=== PATIENT | male | born 1965 | race Caucasian/White ===

== ENCOUNTER 2024-01-15 09:34 | Observation (INO) | payer OTHER ==
--- OUTSIDE RECORDS SUMMARY | 2024-01-15 09:37 | XMS REPORT | Continuity of Care Document ---
Author Name Unknown Address [address] [facility]. [address] [place] [address] [facility] thconnect Address [address] [facility] [address] [place] [address] Care Team Providers Care Fitter Placer Name Role Phone KYLAH Attending Clinician Unavailable Maria Dolores Cowan Attending Clinician [phone] KYLAH Admitting Clinician Unavailable Payers Payer Name Policy Type Policy Number Effective Date Expirati on Date Source [employer] (EPO) [id number] 00:00:00 Medications Ordered Medication Name Filled Medication Name Start Date Stop Date Current Medication? Ordering Clinician Indication Dosage Frequency Signature (SIG) Comments Components Source acetylcyste ine 600 mg capsule Take 2 capsules twice a day by oral route. acetylcyste ine 600 mg capsule Take 2 capsules twice a day by oral route. No 2capsul e(s) BID acetylcyst eine 600 mg capsule Take 2 capsules twice a day by oral route. [facility] amlodipine 10 mg tablet TAKE 1 TABLET BY MOUTH EVERY DAY amlodipine 10 mg tablet TAKE 1 TABLET BY MOUTH EVERY DAY No amlodipine 10 mg tablet TAKE 1 TABLET BY MOUTH EVERY DAY [facility] amlodipine 5 mg tablet TAKE 1 TABLET BY MOUTH EVERY DAY amlodipine 5 mg tablet TAKE 1 TABLET BY MOUTH EVERY DAY No amlodipine 5 mg tablet TAKE 1 TABLET BY MOUTH EVERY DAY [facility] amoxicillin 875 mg-potassiu m clavulanate 125 mg tablet Take 1 tablet every 12 hours by oral route. amoxicillin 875 mg-potassiu m clavulanate 125 mg tablet Take 1 tablet every 12 hours by oral route. No 1 Q12H amoxicilli n 875 mg-potassi um clavulanat e 125 mg tablet Take 1 tablet every 12 hours [address] [facility] atorvastati n 20 mg tablet TAKE 1 TABLET BY MOUTH DAILY IN EVENING WITH MEAL atorvastati n 20 mg tablet TAKE 1 TABLET BY MOUTH DAILY IN EVENING WITH MEAL No atorvastat in 20 mg tablet TAKE 1 TABLET BY MOUTH DAILY IN EVENING WITH MEAL [facility] Bystolic 10 mg tablet TAKE 1 TABLET BY MOUTH EVERY DAY Bystolic 10 mg tablet TAKE 1 TABLET BY MOUTH EVERY DAY No Bystolic 10 mg tablet TAKE 1 TABLET BY MOUTH EVERY DAY [facility] famotidine 40 mg tablet TAKE 1 TABLET BY MOUTH EVERYDAY AT BEDTIME famotidine 40 mg tablet TAKE 1 TABLET BY MOUTH EVERYDAY AT BEDTIME No famotidine 40 mg tablet TAKE 1 TABLET BY MOUTH EVERYDAY AT BEDTIME [facility] fenofibrate 54 mg tablet Take 2 tablets every day by oral route. fenofibrate 54 mg tablet Take 2 tablets every day by oral route. No fenofibrat e 54 mg tablet Take 2 tablets every day by oral route. [facility] Gralise 600 mg tablet,exte nded release TAKE 2 TABLETS BY MOUTH AT BEDTIME Gralise 600 mg tablet,exte nded release TAKE 2 TABLETS BY MOUTH AT BEDTIME No Gralise 600 mg tablet,ext ended release TAKE 2 TABLETS BY MOUTH AT BEDTIME [facility] olmesartan 40 mg tablet TAKE 1 TABLET BY MOUTH EVERY DAY olmesartan 40 mg tablet TAKE 1 TABLET BY MOUTH EVERY DAY No olmesartan 40 mg tablet TAKE 1 TABLET BY MOUTH EVERY DAY [facility] omeprazole 20 mg capsule,del ayed release TAKE 1 CAPSULE BY MOUTH EVERY MORNING omeprazole 20 mg capsule,del ayed release TAKE 1 CAPSULE BY MOUTH EVERY MORNING No omeprazole 20 mg capsule,de layed release TAKE 1 CAPSULE BY MOUTH EVERY MORNING [facility] pregabalin 50 mg capsule TAKE 1 CAPSULE BY MOUTH TWICE A DAY pregabalin 50 mg capsule TAKE 1 CAPSULE BY MOUTH TWICE A DAY No pregabalin 50 mg capsule TAKE 1 CAPSULE BY MOUTH TWICE A DAY [facility] Vital Signs Vital Name Observation Time Observation Value Comments S ource BP Diastolic 2021-07-13 00:00:00 79 mm[Hg] [facility] BP Systolic 2021-07-13 00:00:00 121 mm[Hg] [facility] Body Weight 2021-07-13 00:00:00 2832 [oz_av] [facility] Procedures Procedure Date / Time Performed Performing Clinicia n Source CT, head + brain, w/o contrast 2021-07-12 00:00:00 [facility] Plan of Care Planned Activity Planned Date Details Comments Source Diagnostic Test Pending 2021-07-13 00:00:00 CBC w/ diff [code = CBC w/ diff] [facility] Diagnostic Test Pending 2021-07-13 00:00:00 CMP, serum or plasma [code = CMP, serum or plasma] [facility] Diagnostic Test Pending 2021-07-13 00:00:00 culture, blood [code = culture, blood] [facility] Diagnostic Test Pending 2021-07-13 00:00:00 lipids, total, serum [code = lipids, total, serum] [facility] Instructions [facility] Encounters Start Date/Time End Date/Time Encounter Type Admission Type Attending Clinicians Care Facility Care Department Encounter ID Source 2021-07-13 11:13:00 2021-07-13 11:13:00 Outpatient KYLAH [facility] [id number] [facility] 2021-07-13 00:00:00 2021-07-13 00:00:00 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 [facility] [id number] [facility] 2021-07-13 00:00:00 2021-07-13 00:00:00 Outpatient Maria Dolores Cowan [facility] [id number] 02:34:00 2021-07-12 02:34:00 Outpatient WATERS_S [facility] [id number] [facility] 2021-07-02 12:40:00 2021-07-02 12:40:00 Outpatient [facility]ATERS_S [facility] [id number] [facility] Results Test Description Test Time Test Comments Results Result Co mments Source [facility]
[2024-01-15] MEDS ORDERED: NA CHLORIDE 0.9% 1,000 ML ONE (09:52)
[2024-01-15 10:03] LABS: Absolute Basophils 0.1 K/uL (0-0.5); Absolute Eosinophils 0.2 K/uL (0-0.5); Absolute Lymphocytes (CBC) 1.6 K/uL (0.7-4.9); Absolute Monocytes 1.8 K/uL (0.1-1.3); Absolute Neutrophil 12.1 K/uL (1.8-8.0); Basophils % 0.5 % (0-1.3); Eosinophils % 1.2 % (0-4.4); Hematocrit 37.4 % (39.6-49.0); MCH 32.4 pg (27.0-35.0); MCHC 35.1 g/dL (32.0-36.0); MCV 92.1 fL (80-100); MPV 8.4 fL (7.6-11.3); Monocytes % 11.4 % (3.3-12.3); Neutrophils % 76.9 % (41.7-73.7); Nucleated Red Blood Cells % 0.1 % (0-0); Platelets 271 thou/uL (152-406); RBC Red Blood Cell Count 4.06 M/uL (4.33-5.43); Red Cell Distribution Width 12.9 % (12.1-15.2)
[2024-01-15 10:21] LABS: Hemoglobin 13.1 g/dL (13.6-17.9)
[2024-01-15 10:27] LABS: Albumin 3.7 g/dL (3.4-5.0); Albumin/Globulin Ratio 0.8 (1.1-1.8); Anion Gap 9.1 mEq/L (5.0-15.0); Bilirubin Total 0.8 mg/dL (0.2-1.0); Globulin 4.4 g/dL (2.3-3.5); Potassium 4.1 mEq/L (3.5-5.1); Protein, Total 8.1 g/dL (6.4-8.2)
[2024-01-15 10:31] LABS: Specific Gravity 1.027 (1.005-1.030); Sqamous Epithelial None Seen /HPF (None Seen); Urine Bacteria <20 /HPF (<20); Urine Bilirubin NEGATIVE (Negative); Urine Blood Negative (Negative); Urine Clarity Extremely Turbid (Clear); Urine Color Yellow (Yellow); Urine Culture Reflex Order NOT NEEDED; Urine Glucose NEGATIVE (Negative); Urine Ketones 1+ (Negative); Urine Microscopic Reflex YN ORDER UMIC; Urine Mucus 4+ /HPF (None Seen); Urine Nitrite NEGATIVE (Negative); Urine Protein 1+ (Negative); Urine RBC <5 /HPF (None Seen); Urine Urobilinogen Normal (Normal); Urine WBC <5 /HPF (<5); Urine pH 5.5 (5.0-7.0)
--- NOTE | 2024-01-15 11:12 | RAD REPORT ---
EXAM DESCRIPTION: CTAbdomen Pelvis W Contrast - 01/15/2024 10:48 am CLINICAL HISTORY: Abdominal pain. RLQ pain x 3 days;Abd pain COMPARISON: No comparisons TECHNIQUE: Biphasic CT imaging of the abdomen and pelvis was performed with 100 ml non-ionic IV cont rast. All CT scans are performed using dose optimization technique as appropriate and may include automated exposure control or mA/KV adjustment according to patient size. FINDINGS: The lung bases are clear. The liver demonstrates mild fatty infiltration. The spleen, pancreas, adrenal glands and kidneys are within normal limits. No bowel obstruction, free air, free fluid or abscess. Mild inflammatory changes are seen in the rig ht lower quadrant adjacent to the cecum and base of the appendix. The appendix is dilated to 12-13 mm likely acute appendicitis. No evidence of significant lymphadenopathy. Aortoiliac atherosclerosis. Mild lower lumbar degenerative changes. IMPRESSION: Suspected acute appendicitis.
--- NOTE | 2024-01-15 11:20 | ER ---
Nurse's Notes [facility] Name: Bello Zamora Age: 58 yrs Sex: Male : 1965 Arrival Date: 01/15/2024 Time: 09:34 Bed 4 Private MD: Diagnosis: Appendicitis Presentation: 01/14 09:39 Chief complaint: Patient states: lower abd pain and nausea since monday. Denies aa5 vomiting, reports slight diarrhea. 09:39 Coronavirus screen: At this time, the client does not indicate any symptoms associated aa5 with coronavirus-19. Ebola Screen: Patient denies travel to an Ebola-affected area in the 21 days before illness onset. Initial Sepsis Screen: Does the patient meet any 2 criteria? No. Patient's initial sepsis screen is negative. Does the patient have a suspected source of infection? No. Patient's initial sepsis screen is negative. Risk Assessment: Do you want to hurt yourself or someone else? Patient reports no desire to harm self or others. Onset of symptoms was January 12, 2024. 09:39 Acuity: SOWMYA 3 aa5 09:39 Method Of Arrival: Ambulatory aa5 Triage Assessment: 09:45 General: Appears in no apparent distress. uncomfortable, Behavior is calm, cooperative, bp appropriate for age. Pain: Complains of pain in abdomen. GI: Reports lower abdominal pain. Historical: - Allergies: 09:47 avelox ((moxifloxacin) fluoroquinolone antibiotic ); aa5 - PMHx: 09:47 Hypertensive disorder; aa5 - PSHx: 09:47 None; aa5 - Immunization history:: Adult Immunizations unknown. - Social history:: Smoking status: Reported history of juuling and/or vaping. Screenin:45 [facility] ED Fall Risk Assessment (Adult) History of falling in the last 3 months, bp including since admission No falls in past 3 months (0 pts). Abuse screen: Denies threats or abuse. Denies injuries from another. Nutritional screening: No deficits noted. Tuberculosis screening: No symptoms or risk factors identified. Assessment: 09:45 General: SEE TRIAGE NOTE. bp 10:30 Reassessment: No changes from previously documented assessment. Patient is alert, bp oriented x 3, equal unlabored respirations, skin warm/dry/pink. Vital Signs: 09:39 BP 127 / 78; Pulse 73; Resp 16 S; Temp 97.8(TE); Pulse Ox 96% on R/A; Weight 83.91 kg aa5 (R); Height 5 ft. 10 in. (R); 10:58 BP 122 / 70; Pulse 79; Resp 15; Pulse Ox 97% ; ko1 12:10 BP 118 / 68; Pulse 72; Resp 14; Pulse Ox 98% ; ko1 09:39 Body Mass Index 26.54 (83.91 kg, 177.8 cm) aa5 ED Course: 09:37 Patient arrived in ED. mg5 09:37 Krystal Worthington MD is Attending Physician. sp3 09:39 Arm band placed on Patient placed in an exam room, on a stretcher. aa5 09:44 Mirta Scanlon, PAYAM is Primary Nurse. ko1 09:45 Patient has correct armband on for positive identification. bp 09:50 Triage completed. aa5 09:56 CBC with Diff Sent. bc6 09:56 CMP Sent. bc6 09:56 Lipase Sent. bc6 09:56 Initial lab(s) drawn, by me, sent to lab. Inserted saline lock: 20 gauge in right bc6 antecubital area, using aseptic technique. Blood collected. 10:00 Assisted to bathroom. ko1 10:00 Urinalysis w/ reflexes Sent. bc6 10:48 CT Abd/Pelvis - IV Contrast Only In Process Unspecified. EDMS 10:58 Provided Education on: na. ko1 11:18 Bello Goodwin MD is Hospitalizing Provider. sp3 12:10 Assisted to bathroom. ko1 12:10 No provider procedures requiring assistance completed. Patient admitted, IV remains in ko1 place. Administered Medications: 09:54 Drug: NS 0.9% IV 1000 ml IV at 1 bolus Per protocol; 1000 mL bolus Route: IV; Rate: 1 ko1 bolus; Site: right antecubital; 11:40 Drug: morphine IVP or IV 4 mg IVP once over 4 mins Route: IVP; Infused Over: 4 mins; ko1 Site: right antecubital; 12:09 Follow up: Response: No adverse reaction; Pain is decreased ko1 11:40 Drug: Ondansetron IVP 4 mg IVP once; over 2 minutes Route: IVP; Site: right antecubital;ko1 12:09 Follow up: Response: No adverse reaction ko1 11:53 Drug: Piperacillin-Tazobactam IVPB 3.375 grams IVPB once over 60 mins; (mix in NS 100 ko1 mL) Route: IVPB; Infused Over: 60 mins; Site: right antecubital; 12:09 Follow up: Response: No adverse reaction ko1 Medication: 10:58 VIS not applicable for this client. ko1 Outcome: 11:19 Decision to Hospitalize by Provider. sp3 12:20 Patient left the ED. mb9 Signatures: Dispatcher [employer] EDAlisha March RN RN aa5 Zach Palma RN RN bp Patel, Setul, MD MD sp3 Mirta Scanlon RN RN ko1 Aliyah Rincon RN RN mb9 Nicki Monsivais6 Jimena Mora mg5 Corrections: (The following items were deleted from the chart) 09:49 09:47 Allergies: No Known Allergies; aa5 aa5
--- NOTE | 2024-01-15 11:20 | EDPHYS ---
Physician Documentation [facility] Name: Bello Zamora Age: 58 yrs Sex: Male : 1965 Arrival Date: 01/15/2024 Time: 09:34 Bed 4 Private MD: ED Physician Krystal Worthington HPI: 01/14 09:57 This 58 yrs old Male presents to ER via Ambulatory with complaints of Abdominal Pain. sp3 09:57 58-year-old male with history of hypertension presents with a 3-day history of right sp3 lower quadrant abdominal pain constant in nature which today he states he "got sick". He denies any other symptoms except mild diarrhea nonbloody nonmucoid in nature. He denies fever, headache, URI symptoms, chest pain, shortness breath, back pain, flank pain, dysuria, urinary frequency, left-sided abdominal pain, syncope, near syncope, rash, neurological symptoms, or any other signs or symptoms on ROS at this time. He has no past surgical history.. Historical: - Allergies: 09:47 avelox ((moxifloxacin) fluoroquinolone antibiotic ); aa5 - PMHx: 09:47 Hypertensive disorder; aa5 - PSHx: 09:47 None; aa5 - Immunization history:: Adult Immunizations unknown. - Social history:: Smoking status: Reported history of juuling and/or vaping. ROS: 09:58 Constitutional: Negative for fever, chills, and weight loss, Eyes: Negative for injury, sp3 pain, redness, and discharge, ENT: Negative for injury, pain, and discharge, Neck: Negative for injury, pain, and swelling, Cardiovascular: Negative for chest pain, palpitations, and edema, Respiratory: Negative for shortness of breath, cough, wheezing, and pleuritic chest pain, Back: Negative for injury and pain, : Negative for injury, bleeding, discharge, and swelling, MS/Extremity: Negative for injury and deformity, Skin: Negative for injury, rash, and discoloration, Neuro: Negative for headache, weakness, numbness, tingling, and seizure, Psych: Negative for depression, anxiety, suicide ideation, homicidal ideation, and hallucinations, Allergy/Immunology: Negative for hives, rash, and allergies, Endocrine: Negative for neck swelling, polydipsia, polyuria, polyphagia, and marked weight changes, 09:58 All other systems are negative, Exam: 09:58 Constitutional: This is a well developed, well nourished patient who is awake, alert, sp3 and in no acute distress. Head/Face: Normocephalic, atraumatic. Eyes: Pupils equal round and reactive to light, extra-ocular motions intact. Lids and lashes normal. Conjunctiva and sclera are non-icteric and not injected. Cornea within normal limits. Periorbital areas with no swelling, redness, or edema. Neck: Trachea midline, no thyromegaly or masses palpated, and no cervical lymphadenopathy. Supple, full range of motion without nuchal rigidity, or vertebral point tenderness. No Meningismus. Chest/axilla: Normal chest wall appearance and motion. Nontender with no deformity. No lesions are appreciated. Cardiovascular: Regular rate and rhythm with a normal S1 and S2. No gallops, murmurs, or rubs. Normal PMI, no JVD. No pulse deficits. Respiratory: Lungs have equal breath sounds bilaterally, clear to auscultation and percussion. No rales, rhonchi or wheezes noted. No increased work of breathing, no retractions or nasal flaring. Back: No spinal tenderness. No costovertebral tenderness. Full range of motion. Skin: Warm, dry with normal turgor. Normal color with no rashes, no lesions, and no evidence of cellulitis. MS/ Extremity: Pulses equal, no cyanosis. Neurovascular intact. Full, normal range of motion. Neuro: Awake and alert, GCS 15, oriented to person, place, time, and situation. Cranial nerves II-XII grossly intact. Motor strength 5/5 in all extremities. Sensory grossly intact. Cerebellar exam normal. Normal gait. Psych: Awake, alert, with orientation to person, place and time. Behavior, mood, and affect are within normal limits. 09:58 Abdomen/GI: Right lower quadrant abdominal pain mild in nature without rebound or guarding. No peritoneal signs and negative for surgical abdomen., Vital Signs: 09:39 BP 127 / 78; Pulse 73; Resp 16 S; Temp 97.8(TE); Pulse Ox 96% on R/A; Weight 83.91 kg aa5 (R); Height 5 ft. 10 in. (R); 10:58 BP 122 / 70; Pulse 79; Resp 15; Pulse Ox 97% ; ko1 12:10 BP 118 / 68; Pulse 72; Resp 14; Pulse Ox 98% ; ko1 09:39 Body Mass Index 26.54 (83.91 kg, 177.8 cm) aa5 MDM: 09:39 Patient medically screened. sp3 09:59 Data reviewed: vital signs, nurses notes, lab test result(s), radiologic studies. ED sp3 course: 58-year-old male with 3-day history of right lower quad abdominal pain. Official diagnosis includes appendicitis, colitis, constipation, functional abdominal pain, biliary pathology and to a lesser likelihood vascular/aortic pathology, pathology including UTI/pyelonephritis spectrum, and ureterolithiasis/kidney stone spectrum. Workup will include laboratory values, UA, CT scan of the abdomen pelvis and IV fluids. Patient currently declined pain/nausea medications. Disposition pending workup and patient course.. 11:18 ED course: Patient has CT confirmed appendicitis with WBC count 15. Zosyn started IV sp3 and Dr. Goodwin general surgery will be taken patient on his service for operative procedure today.. 01/14 09:50 Order name: CBC with Diff; Complete Time: 10:43 sp3 01/14 09:50 Order name: CMP; Complete Time: 10:43 sp3 01/14 09:50 Order name: Lipase; Complete Time: 10:43 sp3 01/14 09:50 Order name: Urinalysis w/ reflexes; Complete Time: 10:43 sp3 01/14 09:50 Order name: CT Abd/Pelvis - IV Contrast Only; Complete Time: 11:13 sp3 01/14 09:50 Order name: IV Saline Lock; Complete Time: 09:56 sp3 01/14 09:50 Order name: Labs collected and sent; Complete Time: 09:56 sp3 Administered Medications: 09:54 Drug: NS 0.9% IV 1000 ml IV at 1 bolus Per protocol; 1000 mL bolus Route: IV; Rate: 1 ko1 bolus; Site: right antecubital; 11:40 Drug: morphine IVP or IV 4 mg IVP once over 4 mins Route: IVP; Infused Over: 4 mins; ko1 Site: right antecubital; 12:09 Follow up: Response: No adverse reaction; Pain is decreased ko1 11:40 Drug: Ondansetron IVP 4 mg IVP once; over 2 minutes Route: IVP; Site: right antecubital;ko1 12:09 Follow up: Response: No adverse reaction ko1 11:53 Drug: Piperacillin-Tazobactam IVPB 3.375 grams IVPB once over 60 mins; (mix in NS 100 ko1 mL) Route: IVPB; Infused Over: 60 mins; Site: right antecubital; 12:09 Follow up: Response: No adverse reaction ko1 Disposition Summary: 01/15/24 11:19 Hospitalization Ordered Notes: Hospitalization Status: Observation sp3 Provider: Bello Goodwin sp3 Location: Telemetry/MedSur (observation) sp3 Condition: Stable sp3 Problem: new sp3 Symptoms: have worsened sp3 Bed/Room Type: Standard sp3 Room Assignment: 410(01/15/24 11:26) bd Diagnosis - Appendicitis sp3 Forms: - Medication Reconciliation Form sp3 - SBAR form sp3 - Leadership Thank You Letter sp3 Signatures: Dispatcher [employer] EDPatricia Sawant Audri, RN RN aa5 Krystal Worthington MD MD sp3 Mirta Scanlon RN RN ko1 Corrections: (The following items were deleted from the chart) 09:49 09:47 Allergies: No Known Allergies; aaPaulino aa5 11:26 11:19 sp3 bd
[2024-01-15] MEDS ORDERED: MORPHINE 4 MG/ML SYR ONE (11:37)
[2024-01-15] MEDS ORDERED: ONDANSETRON 4 MG/2 ML VIAL ONE ×2 (11:37→13:22)
[2024-01-15] MEDS ORDERED: NA CHLORIDE 0.9% 100 ML ONE (11:37)
[2024-01-15] MEDS ORDERED: PIPERACIL/TAZO 3.375 GM VIAL IV ONE (11:38)
[2024-01-15] MEDS ORDERED: NEOSTIGMINE 1 MG/ML -10 ML VIAL ONE (13:22)
[2024-01-15] MEDS ORDERED: propofoL 200 MG/20 ML VIAL IV ONE (13:22)
[2024-01-15] MEDS ORDERED: GLYCOPYRROLATE 0.2 MG/ML SYR ONE (13:22)
[2024-01-15] MEDS ORDERED: LIDOCAINE 2% MPF 5 ML VIAL ONE (13:22)
[2024-01-15] MEDS ORDERED: ROCURONIUM 50 MG/5 ML VIAL IV ONE (13:23)
[2024-01-15] MEDS ORDERED: MIDAZOLAM HCL 2 MG/2 ML INJ ONE (13:23)
[2024-01-15] MEDS ORDERED: FENTANYL CITR 100 MCG/2 ML ONE (13:23)
[2024-01-15] MEDS: Ringers Lactate 1,000 ML IV ONE ×2 (13:40→16:16)
[2024-01-15 13:44] VITALS: BMI 26.5
[2024-01-15] MEDS ORDERED: INFLUENZA VACCINE (for 6+ mo) 0.5 ML DOSE IMVAC ONE (14:00)
--- NOTE | 2024-01-15 15:50 | P.HP ---
Date of Service: 01/15/24 PC: This patient presented the emergency room with severe right lower quadrant abdominal pain for diagnosis and treatment HPC: Patient has been having abdominal pain off and on for the last week or so. Describes it as severe, located in the right lower quadrant. Was able to put up with that and told last night when it became very severe he could hardly walk his abdomen was tender to the touch, and it hurt even when he walked. PSHx: Never had surgery before PMHx: Hypertension Social Hx: Allergic to Avelox Sys R: No cough, wheeze, shortness of breath. No chest pain or palpitations. Denies any urinary difficulty. O/E: Awake alert uncomfortable gentleman vital signs are stable HEENT: Not jaundiced Chest: Chest movement equal bilaterally Abd: Tender with guarding in the right lower quadrant [place]: Intact Data: Elevated white cell count, CT scan supports clinical diagnosis of acute abdomen with appendicitis Impression: Acute appendicitis Plan: I will taken the operating room for laparoscopic possible open appendectomy. The risks of this procedure have been discussed. The possibility of bleeding, infection, injury to bowel and blood vessels were described. The possible need for open and or further surgeries and procedures was described. He understands and wishes to proceed.
--- NOTE | 2024-01-15 16:02 | P.OP ---
Preoperative diagnosis: Acute abdomen with umbilical hernia Postoperative diagnosis: Acute appendicitis with umbilical hernia Primary procedure: Laparoscopic appendectomy Secondary procedure: Repair of incarcerated umbilical hernia Anesthesia: General Estimated blood loss: Less than 20 cc Specimen: 1 appendix and hernia sac Operative Technique: The patient brought the operating room placed supine on the table. After the induction of adequate general endotracheal anesthesia, the area of the abdomen was prepped with a DuraPrep solution, he was draped in the usual aseptic manner. Attention was turned towards the umbilicus. The patient has a umbilical hernia in this area. A skin incision was made. This is brought down through the skin and subcutaneous tissue. Using blunt finger dissection we able to expose the umbilical ring itself. The finger was able to poke into the peritoneal cavity. Through this. Will place her 12 mm trocar under direct vision. A pneumoperiton eum was created to approximately 12 mmHg. Another 5 mm trocar was placed on the right lateral side of the abdomen, and another in the inferior midline with the patient placed in reverse Trendelenburg and the table marked lead tip to the left we were able to visualize the right lower quadrant this patient has a lot of obese fat in the mesentery of his small bowel. Up around the cecum we could see that the ileocecal valve and proximal for quite a bit was quite thickened and obviously inflamed. Just underneath and lateral to this was just underneath and lateral to this was an acutely inflamed appendix. We are able to lift up and elevated. About the lower third of his body to the actual appendiceal cecal junction was firmly fixed with the peritoneal attachments on the right lateral side of the abdomen. The cecum was partially mobilized taking down these peritoneal reflection we were able to sweep the appendix and normal to expose it vasculature. A stapling device was placed across the base of the appendix and fired the base of the appendix at its junction with the cecum is very firm in that area consistent with probable chronic inflammation. Attention was turned towards the vasculature was then taken down with vascular michelle. After inspecting the abdomen and detaching the appendix was placed with Endo Catch and brought out through the umbilical trocar site. We were able to irrigate the peritoneal cavity of our irrigating material, this was then aspirated from the peritoneal cavity itself. Attention was turned towards the umbilicus. We were able under direct vision to resect out the old redundant hernia sac. The muscle layers were now approximated using Vicryl. I did not want to place any mesh or any more permanent compound in this area and hopefully this will give him a reasonable repair. At this point the pneumoperitoneum was collapsed, the trocars removed, and michelle applied to the skin. He was stable and sent to the recovery room. Needle sponge instrument count were correct. No drains were placed. Complications: Other Condition: Good
[2024-01-15] MEDS: FENTANYL CITR 100 MCG/2 ML ONE (16:12)
[2024-01-15] MEDS: Ringers Lactate 1,000 ML IV SCH (16:18)
[2024-01-15 16:21] VITALS: O2SAT 95
[2024-01-15] MEDS: MORPHINE 4 MG/ML SYR IV PRN (17:06)
[2024-01-15] MEDS: PIPER TAZO 3.375 GM in NA CHLORIDE 0.9% 100 ML IV SCH (21:29)
[2024-01-15] MEDS: ONDANSETRON 4 MG/2 ML VIAL IV PRN (21:30)
[2024-01-16] MEDS: HYDROCODONE/APAP 7.5/325 MG TAB PO PRN
[2024-01-16 12:32] VITALS: BP 106/61; TEMP 97.3
--- NOTE | 2024-01-16 13:57 | P.DS ---
Admission Date: 01/15/24 Discharge Date: 01/16/24 Disposition: ROUTINE DISCHARGE Discharge Condition: GOOD Reason for Admission: Acute postoperative abdominal pain Procedures: Laparoscopic appendectomy Brief History of Present Illness: Patient presented to the emergency room with severe abdominal pain for diagnosis and treatment. Hospital Course: Patient was evaluated in the emergency room He was found to have acute appendicitis. Both were verified on CT scan and clinically. He was brought to the operating room where he underwent a laparoscopic l appendectomy. He tolerated this procedure well. He was admitted postoperatively for observation and pain control. Today he is up ambulating, his pain is well-controlled on oral medication, he has excellent effort on incentive spirometry. He is deemed fit for discharge. Vital Signs/Physical Exam: Temp Pulse Resp BP Pulse Ox 97.3 F 63 17 106/61 97 01/16/24 12:00 01/16/24 12:00 01/16/24 12:00 01/16/24 12:00 01/16/24 12:00 Laboratory Data at Discharge: WBC 15.80 thou/uL (4.3-10.9) H 01/15/24 09:55 Hgb 13.1 g/dL (13.6-17.9) L 01/15/24 09:55 Hct 37.4 % (39.6-49.0) L 01/15/24 09:55 Plt Count 271 thou/uL (152-406) 01/15/24 09:55 Sodium 139 mEq/L (136-145) 01/15/24 09:55 Potassium 4.1 mEq/L (3.5-5.1) 01/15/24 09:55 BUN 23 mg/dL (7-18) H 01/15/24 09:55 Creatinine 1.26 mg/dL (0.70-1.30) 01/15/24 09:55 Glucose 118 mg/dL (74-106) H 01/15/24 09:55 Total Bilirubin 0.8 mg/dL (0.2-1.0) 01/15/24 09:55 AST 17 U/L (15-37) 01/15/24 09:55 ALT 40 U/L (16-61) 01/15/24 09:55 Alkaline Phosphatase 78 U/L (45-117) 01/15/24 09:55 Lipase 43 U/L (13-75) 01/15/24 09:55 Home Medications: Amlodipine [Norvasc*] 10 mg PO DAILY 01/15/24 Aspirin [John Chewable] 81 mg PO DAILY 01/15/24 Atorvastatin Calcium [Lipitor] 20 mg PO BEDTIME 01/15/24 Cholecalciferol (Vitamin D3) [D3-50] 125 mcg PO DAILY 01/15/24 Famotidine [Pepcid] 40 mg PO DAILY 01/15/24 Mecobalamin [B12 Active] 2,500 mcg PO DAILY 01/15/24 Multivitamin/Iron/Folic Acid [Centrum Adults Tablet] 1 each PO DAILY 01/15/24 Nebivolol HCl [Bystolic] 10 mg PO DAILY 01/15/24 Olmesartan Medoxomil 40 mg PO DAILY 01/15/24 Omeprazole 20 mg PO DAILY 01/15/24 Turmeric Root Extract [Turmeric] 1,000 mg PO BID 01/15/24 Physician Discharge Instructions: DC IV, DC home. You may shower. Change dressings as needed. Milk of magnesia as needed. A prescription for pain medicine has been called in to your pharmacy. Any questions or problems, go to the emergency room, or contact me. Call office tomorrow for a Monday appointment next week. Diet: Regular Activity: Ad luís Followup: Jg Bui MD [Primary Care Provider] -
== END 2024-01-16 14:05 | disposition home or self-care (01) ==
LOC: ER 09:34 → 4TH 11:33
PROVIDERS: ADMIT Surgery; ATTEND Surgery
PROC: 0DTJ4ZZ Resection of Appendix, Percutaneous Endoscopic Approach (ICD-10-PCS; principal; 2024-01-15 13:15)
DX: K35.80 Unspecified acute appendicitis (principal); R10.31 Right lower quadrant pain; K42.0 Umbilical hernia with obstruction, without gangrene
CPT/HCPCS: 85025; 81001; 36415; 88304; 83690; 80053; 74177; 94010; 44970; Q9967; J2704; J2710; J2543 ×4; J2001; J2250; J3010 ×2; J2405 ×3; J7120 ×4; J7030; 88302; 96374; 96375; 99284; G0378